=== PATIENT | male | born 1990 | race Asian ===

== ENCOUNTER 2017-05-02 11:21 | Emergency (ER) | payer SELFPAY ==
[~2017-05-02] VITALS: Ht 182.9 cm; Wt 80.9 kg
== END 2017-05-02 12:48 | disposition home or self-care (01) ==
LOC: ED 11:21
DX: S52.202A Unspecified fracture of shaft of left ulna, initial encounter for closed fracture (principal); W18.11XA Fall from or off toilet without subsequent striking against object, initial encounter; Y93.89 Activity, other specified; Y92.091 Bathroom in other non-institutional residence as the place of occurrence of the external cause
CPT/HCPCS: Q0092